=== PATIENT | female | born 1980 ===

== ENCOUNTER → 2017-07-22 | Outpatient (CLI) | payer BC ==
[~2017-07-22] MED LIST: IBUP800 PO; LORA10 PO
[2017-07-24 13:30] LABS: HPV Genotype 16 Not Detected (NOTDET); HPV Genotype 18 Not Detected (NOTDET)
[2017-07-28 08:59] LABS: HPV High Risk Other Not Detected (NOTDET)
== END ==
LOC: OLS 17:06
PROVIDERS: Nurse Practitioner Women's Health
DX: Z12.4 Encounter for screening for malignant neoplasm of cervix (principal); Z91.89 Other specified personal risk factors, not elsewhere classified
CPT/HCPCS: 87624; G0123

== ENCOUNTER → 2018-08-21 | Outpatient (CLI) | payer BC ==
[2018-08-25 15:06] LABS: HPV 16 Negative (Negative); HPV 18 Negative (Negative); HPV OTHER HR TYPES Negative (Negative)
== END | disposition home or self-care (01) ==
LOC: LAB 18:30 → LAB SHORT 18:30
PROVIDERS: Nurse Practitioner Women's Health
DX: Z12.4 Encounter for screening for malignant neoplasm of cervix (principal); Z91.89 Other specified personal risk factors, not elsewhere classified
CPT/HCPCS: 87624; G0123

== ENCOUNTER → 2018-09-10 | Outpatient (CLI) | payer BC | LOC: LAB 14:38 → LAB SHORT 14:38 | DX: N39.3 Stress incontinence (female) (male) (principal) | CPT/HCPCS: 87086 ==

== ENCOUNTER 2018-09-23 11:48 | Day surgery (SDC) | payer BC ==
[~2018-09-23] VITALS: Ht 167.6 cm; Wt 63.7 kg
[~2018-09-23 11:48] MED LIST changes: +B Complex #11 EACH PO; +Bupropion HCl75 MG PO; +FISH OIL 1,001000 MG PO; +IBU800 MG PO; +Junel Fe 1-201 EACH PO; +VITAMIN D32000 UNIT PO
[2018-09-23] MEDS ORDERED: BUPR75 PO (12:31)
--- NOTE | 2018-09-23 14:19 | NUR ---
09/23/18 1419 Aura Harkins ONCE IN STEP DOWN PT WAS HOOKED UP TO VITAL SIGN MONITOR; VSS. BLADDER SCAN PERFORMED WITH 73ML OF FLUID IN THE BLADDER. RN ENCOURAGED FLUIDS PO AND IV IS RUNNING AT A SLOW DRIP. PT CONTINUES TO REST IN THE BED AT THIS TIME. PT IS ACCOMPANIED BY HER . PT DENIES PAIN AND NAUSEA. CALL LIGHT IN REACH. WARM BLANKETS PROVIDED.
== END 2018-09-23 17:39 | disposition home or self-care (01) ==
LOC: ORSCSDS 11:48
PROVIDERS: Obstetrics & Gynecology Gynecology
PROC: 0TSD0ZZ Reposition Urethra, Open Approach (ICD-10-PCS; principal; 2018-09-23 13:00)
DX: N39.3 Stress incontinence (female) (male) (principal); Z87.891 Personal history of nicotine dependence
CPT/HCPCS: C1771; J0690; J1100; J1885; J2250; J2405; J2704; J3010; J7120

== ENCOUNTER 2019-01-07 08:28 | Day surgery (SDC) | payer BC ==
[~2019-01-07] VITALS: Ht 165.1 cm; Wt 151.8 kg
[~2019-01-07 08:28] MED LIST changes: +BUPR75 PO
[2019-01-07] MEDS ORDERED: BUSP10 BC (09:16)
--- NOTE | 2019-01-07 12:15 | NUR ---
01/07/19 1215 Meka Sharma LATE ENTRY---DURING RECOVERY THE PATIENT DID ADMIT TO FEELING LIKE SOMETHING WAS IN HER THROAT OR A FULLNESS AT THE BACK OF HER THROAT. SHE DENIES THAT IT IS PAINFUL AT ALL, JUST "FEELS DIFFERENT"
== END 2019-01-07 10:50 | disposition home or self-care (01) ==
LOC: ORSCSDS 08:28
PROVIDERS: Internal Medicine Gastroenterology
PROC: 0DB58ZX Excision of Esophagus, Via Natural or Artificial Opening Endoscopic, Diagnostic (ICD-10-PCS; principal; 2019-01-07 09:45)
PROC: 0DB68ZX Excision of Stomach, Via Natural or Artificial Opening Endoscopic, Diagnostic (ICD-10-PCS; principal; 2019-01-07 09:45)
PROC: 0D758ZZ Dilation of Esophagus, Via Natural or Artificial Opening Endoscopic (ICD-10-PCS; principal; 2019-01-07 09:45)
DX: R13.10 Dysphagia, unspecified (principal); K21.9 Gastro-esophageal reflux disease without esophagitis; Z79.3 Long term (current) use of hormonal contraceptives; Z79.899 Other long term (current) drug therapy
CPT/HCPCS: 88305; 88342; J2250; J2704; J7120

== ENCOUNTER 2020-07-21 10:26 | Day surgery (SDC) | payer BC ==
[~2020-07-21] VITALS: Ht 167.6 cm; Wt 70.8 kg
[~2020-07-21 10:26] MED LIST changes: +BUSP10 BC; +Loratadine10 MG PO; +MULVITA PO; +PEPCID20 MG PO
--- NOTE | 2020-07-21 11:01 | NUR ---
Ambulatory in Day Surgery Patient reports completing Chlorhexadine shower X2 prior to admission to hospital. History, Chart, Medications and Allergies reviewed before start of procedure. Lungs clear T/O to Auscultation. Patient confirms NPO status and agrees with scheduled surgery. URINE SAMPLE OBTAINED, HCG-. BILATERAL IV PLACED, ADDITIONAL LABS SENT TO LAB.
--- NOTE | 2020-07-21 15:08 | NUR ---
CALLED PT'S SPOUSE AND ADVISED PT WAS IN ROOM 224.
--- NOTE | 2020-07-21 15:15 | NUR ---
pt arrived to unit from pacu [id number]. REPORTS PAIN 10/31 TO ABD. DENIES SOB OR N/V. VSS. SMALL AMT SANGUINOUS DRAINAGE NOTED TO AYO UPON TURNING. LAP INCISIONS TO ABD CDI. SECURED WITH WOUND GLUE. NOTIIFED SPOUSE PT IN ROOM.
--- NOTE | 2020-07-21 15:28 | NUR ---
PT UP TO RESTROOM
--- NOTE | 2020-07-21 18:38 | NUR ---
discharged PT VOIDING. PAIN TOLERABLE. NAUSEA RESOLVED AND TOLERATING PO. PT DESIRED TO GO HOME. IVS DC'D. PT ALREADY HAS PRESCRIPTIONS HOME. REVIEWED DC PAPERWORK; PT VERBALIZED UNDERSTANDING. LEFT UNIT IN WC W/POSSESSIONS AND DC PAPERWORK IN HAND, ACCOMPANIED BY SPOUSE TO RIDE OUTSIDE.
[2020-10-27] MEDS ORDERED: FAMO20 PO (12:48)
[2020-10-27] MEDS ORDERED: LORA10ER PO (12:49)
== END 2020-07-21 18:41 | disposition home or self-care (01) ==
LOC: ORSCMMR 10:26 → ORD 10:30 → ORSCMMR 10:30 → SURS 14:39 → ORSCMMR 18:41
DX: N92.0 Excessive and frequent menstruation with regular cycle (principal); N80.0 Endometriosis of uterus; N80.3 Endometriosis of pelvic peritoneum; N94.6 Dysmenorrhea, unspecified; N81.4 Uterovaginal prolapse, unspecified; K21.9 Gastro-esophageal reflux disease without esophagitis; Z79.899 Other long term (current) drug therapy
CPT/HCPCS: 58571; S2900; 36415; 86850; 86900; 86901; 88307; A9270; J0690; J1100; J1885; J2250; J2405; J2704; J3010; J7120

== ENCOUNTER 2020-11-01 06:08 | Day surgery (SDC) | payer BC ==
[~2020-11-01] VITALS: Ht 167.6 cm; Wt 70.4 kg
[~2020-11-01 06:08] MED LIST changes: +FAMO20 PO; +LORA10ER PO
[2020-11-01] MEDS ORDERED: CENTRUM SILVER1 EAC2 PO (06:34)
[2020-11-01] MEDS ORDERED: VITAMIN D31000 UNI1 PO (06:35)
[2020-11-01] MEDS ORDERED: Vitamin B-121000 MCG PO (06:35)
--- NOTE | 2020-11-01 06:52 | NUR ---
Ambulatory in Day Surgery. History, Chart, Medications and Allergies reviewed before start of procedure. Lungs clear T/O to Auscultation. Patient confirms NPO status and agrees with scheduled surgery. Patient reports completing Chlorhexadine shower X2 prior to admission to hospital. Patient States Post-Procedure ride home has been arranged. + VOID.
--- NOTE | 2020-11-01 10:26 | NUR ---
SECOND IV ACCESS DCd WNL. Patient up to Ambulate independently. Gait steady.USED RESTROOM WITHOUT ISSUES. Discharge instructions reviewed with patient. Patient verbalizes understanding. Copy given to patient to take home. Discharged via wheelchair to private car for ride home WITH
== END 2020-11-01 10:25 | disposition home or self-care (01) ==
LOC: ORSCMMR 06:08 → ORD 07:30 → ORSCMMR 10:25
PROVIDERS: Surgery
PROC: 0JBC0ZZ Excision of Pelvic Region Subcutaneous Tissue and Fascia, Open Approach (ICD-10-PCS; principal; 2020-11-01 07:30)
PROC: 0YU54JZ Supplement Right Inguinal Region with Synthetic Substitute, Percutaneous Endoscopic Approach (ICD-10-PCS; principal; 2020-11-01 07:30)
PROC: 8E0W4CZ Robotic Assisted Procedure of Trunk Region, Percutaneous Endoscopic Approach (ICD-10-PCS; principal; 2020-11-01 07:30)
DX: K40.90 Unilateral inguinal hernia, without obstruction or gangrene, not specified as recurrent (principal); D17.1 Benign lipomatous neoplasm of skin and subcutaneous tissue of trunk; K21.9 Gastro-esophageal reflux disease without esophagitis; F17.210 Nicotine dependence, cigarettes, uncomplicated; Z79.899 Other long term (current) drug therapy
CPT/HCPCS: 49650; 27047; S2900; 88304; A9270; C1781; J0690; J1100; J1885; J2405; J2704; J3010; J7120

== ENCOUNTER → 2025-05-26 | Outpatient (CLI) | payer OTHER ==
[~2025-05-26] MED LIST changes: +CENTRUM SILVER1 EAC2 PO; +VITAMIN D31000 UNI1 PO; +Vitamin B-121000 MCG PO
[2025-05-27 19:46] LABS: HEPATITIS B SURFACE ANTIBODY >1000.00 IU/L
[2025-05-29 08:52] LABS: HCV QNT BY NAAT (IU/ML) Not Detected; HCV QNT BY NAAT (LOG IU/ML) Not Detected; HCV QNT BY NAAT INTERP Not Detected (Not Detected)
[2025-05-29 13:27] LABS: HIV 1,2 COMBO ANTIGEN/ANTIBODY Negative
== END ==
LOC: LAB SHORT 11:58 → LAB 11:58
PROVIDERS: Chiropractor
DX: Z20.9 Contact with and (suspected) exposure to unspecified communicable disease (principal)
CPT/HCPCS: 84460; 87340; 87389; 87522